=== PATIENT | female | born 1975 | race Caucasian/White ===

== ENCOUNTER 2017-10-09 18:34 | Emergency (ER) | payer BC ==
[2017-10-09 18:49] VITALS: BP 122/93
--- NOTE | 2017-10-09 19:39 | UC ---
General HPI - HPI Summary HPI Summary: Patient recently moved to the area and has been unable to establish with a PCP who could see her earlier than a few months from now. Has had about 3 months of overall fatigue and malaise. About 7 pound unintentional weight gain and breakthrough bleeding over the last couple of months which is not normal for her. She does carry a history of PCOS but states she normally has regular periods. Has some mild intermittent nausea but no vomiting or diarrhea. States she feels her nails are a bit brittle and her hair feels a bit thin. Also reports a tick bite to her left abdomen about 1 month ago. She denies fever, headache, joint pain. No rash. Tick was attached for no more than a few hours. - History of Current Complaint Chief Complaint: UCGeneralIllness Stated Complaint: EXHAUSTION,NAUSEA Time Seen by Provider: 10/09/17 18:53 Hx Obtained From: Patient Hx Last Menstrual Period: one week ago Onset/Duration: Gradual Onset, Lasting Weeks, Still Present Timing: Constant Onset Severity: Moderate Current Severity: Moderate Pain Intensity: 0 Associated Signs & Symptoms: Positive: Nausea. Negative: Cough, Dizziness, Diarrhea, Decreased Oral Intake, Diaphoresis, Fever, Headache, Recent Medication Changes, SOB, Vomiting, Weakness - Allergy/Home Medications Allergies/Adverse Reactions: Allergies Allergy/AdvReac Type Severity Reaction Status Date / Time Gadolinium-Containing Allergy Flushing Verified 10/09/17 18:51 Contrast Medi Penicillins Allergy Unknown Verified 10/09/17 18:51 Reaction Details Sulfa (Sulfonamide Allergy Unknown Verified 10/09/17 18:51 Antibiotics) Reaction Details Home Medications: Home Medications Albuterol HFA INHALER* [Ventolin HFA Inhaler*] 2 puff INH Q6HR PRN 10/09/17 [ History Confirmed 10/09/17] NK [No Home Medications Reported] 10/09/17 [History Confirmed 10/09/17] PMH/Surg Hx/FS Hx/Imm Hx - Additional Past Medical History Additional PMH: PCOS Respiratory History: Asthma - Surgical History Surgical History: None - Social History Alcohol Use: Occasionally Substance Use Type: None Smoking Status (MU): Never Smoked Tobacco Review of Systems Constitutional: Fatigue ENT: Negative Respiratory: Negative Cardiovascular: Negative Gastrointestinal: Nausea Genitourinary: Abnormal Bleeding All Other Systems Reviewed And Are Negative: Yes Physical Exam Triage Information Reviewed: Yes Appearance: Well-Appearing, No Pain Distress, Well-Nourished Vital Signs: Initial Vital Signs Temp 97.8 F 10/09/17 18:44 Pulse 74 10/09/17 18:44 Resp 12 10/09/17 18:44 BP 122/93 10/09/17 18:44 Pulse Ox 100 10/09/17 18:44 Vital Signs Reviewed: Yes Eyes: Positive: Conjunctiva Clear ENT: Positive: Hearing grossly normal, Pharynx normal, TMs normal Neck: Positive: Supple, Nontender, No Lymphadenopathy Respiratory Exam: Normal Cardiovascular Exam: Normal Abdomen Description: Positive: Soft Musculoskeletal: Positive: No Edema Neurological: Positive: Alert Psychological: Positive: Age Appropriate Behavior Skin: Positive: Other - PINPOINT SIZED HEALING BITE SITE LEFT ABDOMEN. NO SURROUNDING ERYTHEMA OR DRAINAGE. NO TENDERNESS. 0.5CM "STUCK ON" APPEARING LIGHT BROWN LESION RIGHT MID BACK. NO EXCORIATION, ERYTHEMA OR DRAINAGE. NOT TENDER.. Negative: rashes Course/Dx - Course Course Of Treatment: PT HAS BEEN UNABLE TO ESTABLISH WITH A PCP IN A TIMELY MANNER. WILL GIVE [facility] CONTACT INFORMATION. CONCERN FOR THYROID ABNORMALITY. WILL CHECK TSH WELL CBC AND CMP. LOW SUSPICION FOR LYME AT THIS TIME. PT ALSO REQUESTING DERM CONTACT NUMBERS FOR A SPOT ON HER BACK (LOOKS LIKE A SEBORRHEIC KERATOSIS) AND [facility] FOR FURTHER MANAGEMENT OF HER PCOS. - Differential Dx - Multi-Symptom Provider Diagnoses: FATIGUE Discharge - Sign-Out/Discharge Documenting (check all that apply): Discharge/Admit/Transfer - Discharge Plan Condition: Stable Disposition: HOME Patient Education Materials: Fatigue (ED) Referrals: [facility] [Provider Group] - 2 Weeks [facility] [Outside] - 1 Week Additional Instructions: BLOOD COUNT, METABOLIC PANEL AND THYROID TESTED TODAY. WE WILL CALL YOU WITH ANY ABNORMAL RESULTS. STAY RESTED AND HYDRATED. GO TO THE ED WITHOUT FAIL IF YOU DEVELOP FEVER, WORSENING NAUSEA/VOMITING, HEADACHE OR ANY OTHER CONCERNING SYMPTOMS. YOUR PRESENTATION IS NOT CONSISTENT WITH LYME DISEASE AND THE TICK WAS NOT ATTACHED FOR LONG ENOUGH TO PUT YOU AT HIGH RISK FOR LYME DISEASE. WOULD NOT TEST FOR LYME TODAY. CALL THE NUMBER BELOW FOR ASSISTANCE IN ESTABLISHING WITH A PCP An additional resource available to assist in finding the appropriate physician for your health care needs is the [facility] ([facility]). You may contact them by calling [phone]. IF YOU ARE UNABLE TO ESTABLISH WITH DR. RAMON OR ANOTHER PCP IN A REASONABLE TIME PERIOD CALL THE [facility]. PER YOUR REQUEST HERE ARE SOME OTHER SPECIALIST GROUPS: DERMATOLOGY [place] DR. EDU[facility]O [facility], [facility] [address]; [address] [place] [address] Dr. Allyson Robledo Address: [address] [place] [address] [address] [place] [address] DR. ROSE [facility]DUE [facility] [address] [place] [address] [address] [place] [address] Tonia Cedeno D[facility]MATOLOGY [place] DR. VIOLET ALARCON [phone] [facility] [address] PHONE: [phone] - Billing Disposition and Condition Condition: STABLE Disposition: Home
[2017-10-10 11:38] LABS: ABS Basophils 0.1 10^3/ul (0-0.2); ABS Eosinophils 0.3 10^3/ul (0-0.6); ABS Monocytes 0.4 10^3/ul (0-0.8); ABS Neutrophils 5.9 10^3/ul (1.5-7.7); ABS Nucleated RBC 0 10^3/ul; Eosinophil % 3.6 % (0-6); Hematocrit 40 % (35-47); Hemoglobin 13.4 g/dl (12.0-16.0); Lymphocyte % 22.7 % (25-47); Mean Corpuscular HGB Conc 33 g/dl (31-36); Mean Corpuscular Hemoglobin 29 pg (27-31); Mean Corpuscular Volume 86 fL (80-97); Mean Platelet Volume 8.4 um3 (7.4-10.4); Nucleated Red Blood Cells % 0.2; Platelet Count 293 10^3/ul (150-450); Red Blood Count 4.65 10^6/ul (4.00-5.40); Red Cell Distribution Width 13 % (10.5-15); White Blood Count 8.6 10^3/ul (3.5-10.8)
== END 2017-10-09 19:41 | disposition home or self-care (01) ==
LOC: UCEAST 18:34
DX: R53.83 Other fatigue (principal); R53.81 Other malaise; R11.0 Nausea; N93.9 Abnormal uterine and vaginal bleeding, unspecified; R63.5 Abnormal weight gain; E28.2 Polycystic ovarian syndrome; J45.909 Unspecified asthma, uncomplicated; Z88.0 Allergy status to penicillin; Z88.2 Allergy status to sulfonamides; Z91.041 Radiographic dye allergy status
CPT/HCPCS: 36415; 80053; 84443; 85025; 99201; G0463